=== PATIENT | male | born 1965 | race Caucasian/White ===

== ENCOUNTER 2016-09-18 07:09 | Emergency (ER) | payer OTHER ==
[~2016-09-18] VITALS: Ht 175.3 cm; Wt 90.9 kg
[~2016-09-18 07:09] MED LIST: ZLP10T PO
[2016-09-18 07:10] VITALS: BP 151/94; PULSE 88; RESP 18; O2SAT 97
--- NOTE | 2016-09-18 07:12 | ED.REPORT ---
HPI-General Illness Date of Service Sep 18, 2016 ED Provider: Patient is a 50 year old male with a history of alcoholism and substance abuse who reports to the ER requesting medical clearance for crisis respite. He was recently at crisis but was discharged last week. His last drink was earlier today. Pt took one Tylenol with codeine yesterday and had benzos from the crisis center last week. He denies vomiting or diarrhea. He reports smoking cocaine a few weeks ago and states he has experienced "cocaine psychosis" since. He reports that he is hearing voices that don't tell him to do things but they beat him down. He states that the voices sound very real in his head unless he consumes alcohol which helps to relieve the hallucinations. Pt is supposed to report to a 30-day inpatient treatment center on Monday. He denies suicidal or homicidal ideation. Nursing Notes Stated Complaint: DETOX Chief Complaint: Substance Abuse Nursing Notes Reviewed: Yes Allergies: Coded Allergies: hydrocodone (Verified Allergy, Intermediate, Hives, 09/28/15) varenicline (Verified Allergy, Unknown, PSYCHOSIS, 09/28/15) Scheduled Lorazepam (Ativan) 1 Mg Tablet 1 MG PO DIRECTED 2mg po q6hrs x 24hrs, then 1mg po q6hrs x 24hrs, then 1mg po q8hrs x 24hrs, then 1mg po q12hrs x 24hrs, then 1mg po Quetiapine Fumarate (Seroquel) 25 Mg Tablet 25 MG PO HS Scheduled PRN Zolpidem (Ambien) 10 Mg Tablet 10 MG PO HS PRN PRN For Insomnia General Time Seen by MD: 07:16 Chief Complaint Medical clearance Hx Obtained From: Patient Sudden in Onset?: Yes Onset Occurred: More than a week ago... Symptom Duration: Since onset Severity: Current: No pain currently Severity: Maximum: No pain Similar Sx Previous: Yes Past Medical History Past Medical History Notes: ED visits: 08/31/2015 and 08/03/2015 for EtOH abuse Past Medical History Hep C Polysubstance abuse Tobacco abuse h/o ETOH abuse Past Surgical History Compound fracture of right arm and surgery. Family History non-contributory Smoking History Current Every Day Smoker Social History Alcohol Use: >5 per day Drug Use: Cocaine Other Social History: Good social support, Local resident Ambulatory Status Independent Review of Systems Full Review of Systems GI: Denies: Diarrhea, Nausea, Vomiting Psychiatric: Reports: Hallucinations, auditory (hears voices that are "beating him down"), Denies: Homicidal ideation, Suicidal ideation Complete sys rev & neg: except as marked. Physical Exam Vital Signs Vital Signs Date Time Temp Pulse Resp B/P Pulse Ox O2 Delivery O2 Flow Rate FiO2 09/18/16 07:10 36.6 88 18 151/94 97 Initial VS: Reviewed General/Constitutional: Well-developed, Well-nourished Head / Eyes: Atraumatic, Normocephalic, PERRL ENT: Mucous membranes moist, Conjunctiva normal, No scleral icterus Neck: Supple, Full range of motion Respiratory: Breath sounds normal, Clear to auscultation, No respiratory distress Cardiovascular: Regular rate & rhythm, Heart sounds normal, Intact distal pulses Abdomen / GI: Soft, Non-tender, No guarding, No rebound, No distention Skin: Warm, Dry, No cyanosis Neurologic: Alert, Oriented, Nonfocal Psychiatric: Not suicidal Abnormal Thinking / Perception: Positive: Hallucinations, auditory Hearing voices related to using cocaine, this has happened many times before. The voices are negative but pt is not feeling suicidal or homicidal. Interpretation & Diagnostics Interpretation & Diagnostics: Breathalyzer: 0.084 Urine drug screen positive for benzodiazepines and opiates Lab Results Interpretation Test 09/18/16 07:20 Hold Urine Received (Received) Re-Eval/Medical Decision Med Decision/Clinical Course Great candidate for crisis respite. Incidentally reports auditory hallucinations after using cocaine. Since the patient will be in a monitored setting, Seroquel 25 mg daily at bedtime will be started as well as an Ativan taper. Source of Hx: Old records Consultation : Call Returned at: 07:51 Hand Box Coverer: Agrees with plan Note: Consult with Crisis Center Counseled Regarding: Diagnosis, Lab results, Need for follow-up, When/why to return to ED Discharge & Departure Primary Impression: Alcoholism Disposition: Home Discharge Condition All VS Reviewed: Yes Condition: Stable Additional Instructions: Thank you for seeking care at emergency room. You will be discharged with a prescription for Ativan and Seroquel. You should return to the ED immediately if you develop fevers, vomiting, cough , shortness of breath, chest pain, lightheadedness, weakness or any other concerning signs or symptoms. Thank you for letting us partake in your care today. Referrals: OTHER,PHYSICIAN (PCP) (Family) Scribe Attestation Portion of this note were transcribed by Xiomy Jenkins and Sophia Stewart. I, Dr. Doug Castillo, personally performed the history, physcial exam, and medical decision- making: I reviewed and confirmed the accuracy for the information in the transcribed note. Signed by: Sophia Stewart and aaron Rea, 09/15/16 0831. Walter Mendez DO Sep 18, 2016 07:12 SOPHIA STEWART Sep 18, 2016 07:42 Xiomy Jenkins Sep 18, 2016 08:17
[2016-09-18] MEDS ORDERED: LORA-303 PO (07:33)
[2016-09-18] MEDS ORDERED: QUET25TA PO (07:33)
[2016-09-18] MEDS ORDERED: LORazepam 2 mg Tablet PO ONE (07:55)
== END 2016-09-18 08:14 | disposition home or self-care (01) ==
LOC: SED 07:09
DX: F10.120 Alcohol abuse with intoxication, uncomplicated (principal); F17.200 Nicotine dependence, unspecified, uncomplicated; Z88.5 Allergy status to narcotic agent; Z88.8 Allergy status to other drugs, medicaments and biological substances

== ENCOUNTER 2016-10-01 11:20 | Emergency (ER) | payer OTHER ==
[~2016-10-01] VITALS: Ht 175.3 cm; Wt 90.9 kg
[~2016-10-01 11:20] MED LIST changes: +LORA-303 PO; +QUET25TA PO
[2016-10-01 11:24] VITALS: BP 177/98; PULSE 90; RESP 18; O2SAT 98
[2016-10-01] MEDS ORDERED: LORazepam 0.5 mg Tablet PO ONE (12:20)
--- NOTE | 2016-10-01 12:24 | ED.REPORT ---
[facility]-Medical Clearance Date of Service Oct 01, 2016 ED Provider: Malachi Natarajan PA-C General he is otherwise healthy 50-year-old male presents to be cleared for alcohol rehabilitation. He has a bed arranged at crisis rehabilitation. He states than drinking 1.5 gallons of vodka daily, that his last drink was 2 hours ago. Complains that he has been hearing abusive voices for several months. He relates this to his cocaine use, which he states has ended. Also complains of anxiety. He has no physical complaints. Denies suicidal ideation , homicidal ideation. Nursing Notes Stated Complaint: NEEDS TO GET CLEARED FOR DETOX Chief Complaint: Substance Abuse Nursing Notes Reviewed: Yes Allergies: Coded Allergies: hydrocodone (Verified Allergy, Intermediate, Hives, 09/28/15) varenicline (Verified Allergy, Unknown, PSYCHOSIS, 09/28/15) Scheduled Lorazepam (Ativan) 1 Mg Tablet 1 MG PO DIRECTED 2mg po q6hrs x 24hrs, then 1mg po q6hrs x 24hrs, then 1mg po q8hrs x 24hrs, then 1mg po q12hrs x 24hrs, then 1mg po Quetiapine Fumarate (Seroquel) 25 Mg Tablet 25 MG PO HS Scheduled PRN Zolpidem (Ambien) 10 Mg Tablet 10 MG PO HS PRN PRN For Insomnia General Time Seen by Provider: 11:57 Chief Complaint : Other (alcohol abuse) Reason for visit: Clear for rehab facility Past Medical History Past Medical History Notes: ED visits: 08/31/2015 and 08/03/2015 for EtOH abuse Past Medical History Hep C Polysubstance abuse Tobacco abuse h/o ETOH abuse Past Surgical History Compound fracture of right arm and surgery. Family History non-contributory Smoking History Current Every Day Smoker Social History Alcohol Use: >5 per day Drug Use: Cocaine Other Social History: Good social support, Local resident Ambulatory Status Independent Review of Systems General: Denies fever, chills, malaise. HEENT: Denies congestion, headache, sore throat. Respiratory: Denies dyspnea, cough, shortness of breath, wheezing. Cardiovascular: Denies chest pain, palpitations. Gastrointestinal: Denies vomiting, diarrhea, abdominal pain. Genitourinary: Denies frequency, urgency, dysuria, hematuria. Otherwise as noted in HPI. Physical Exam General: Well appearing, well developed, well nourished, no acute distress. Head: Atraumatic, normocephalic. Eyes: No scleral icterus or injection. No discharge. Vision grossly intact. ENT: Voice clear, hearing grossly intact. Respiratory: Regular rate and rhythm. Breath sounds present, clear to auscultation and equal bilaterally. Cardiovascular: Regular rate and rhythm, without murmur, gallop or rub. No pedal edema. Gastrointestinal: Abdomen flat and non-tender without guarding or rebound. Bowel sounds normoactive. Skin: Warm and dry. Neurological: Grossly nonfocal. Psychological: Alert and oriented. Speech appropriate, linear and logical. Behavior appropriate. Initial Vital Signs Vital Signs (First) Date Time Temp Pulse Resp B/P Pulse Ox O2 Delivery O2 Flow Rate FiO2 10/01/16 11:24 36.1 90 18 177/98 98 Room Air Initial VS: Reviewed Re-Eval/Medical Decision Med Decision/Clinical Course 50-year-old male evaluated for medical clearance to crisis Center. History and physical revealed no medical instability. Admits auditory hallucinations that are abusive, denies command hallucinations. Has a better range at the crisis [facility]. Discharged with Ativan taper and return precautions. Discharge & Departure Impression: Primary Impression: Alcohol abuse Disposition: Home Discharge Condition All VS Reviewed: Yes Condition: Stable Patient Instructions: Abuse of Alcohol (ED) Additional Instructions: Relation in the ED for medical clearance to alcohol rehabilitation. History and physical revealed no medical instability. Urine toxicology was negative, breathalyzer was 0.208. Clinically sober. Cleared for alcohol rehabilitation. We will discharge you with an prescription for Ativan taper. Please present to crisis rehabilitation at the scheduled time. Return to emergency department for any new or worsening symptoms including seizures, chest pain, shortness of breath. Referrals: [facility] Provider for APC: Antoine Carmen MD, Seth PA-C Oct 01, 2016 12:24
== END 2016-10-01 12:58 | disposition home or self-care (01) ==
LOC: SED 11:20
DX: F10.10 Alcohol abuse, uncomplicated (principal); R44.0 Auditory hallucinations; F17.200 Nicotine dependence, unspecified, uncomplicated; Z88.5 Allergy status to narcotic agent

== ENCOUNTER 2016-10-10 21:19 | Emergency (ER) | payer OTHER ==
[~2016-10-10] VITALS: Ht 175.3 cm; Wt 90.9 kg
[2016-10-10 21:45] VITALS: BP 153/88; PULSE 78; RESP 18; O2SAT 97
--- NOTE | 2016-10-10 22:53 | ED.REPORT ---
HPI-General Illness Date of Service Oct 10, 2016 ED Provider: Denis Morgan MD Patient is an alcoholic 50 year old male with hepatitis C who presents to the ED requesting medical clearance for [facility], after last drinking alcohol 1 hour prior to arrival. Patient has a confirmed bed at [facility] at 1am tomorrow morning. He reports typically drinking a case of beer per day. The patient has tried to withdraw from alcohol in the past and he usually only develops shakes and diaphoresis. He denies a history of alcohol withdrawal seizures. The patient states that he has stage 1 fibrosis of his liver, due to hepatitis C. Patient is on a list to receive treatment for his hepatitis C, but needs to have a clean drug screen prior. The patient reports having auditory hallucinations due to prior cocaine use, which is part of the reason why he uses alcohol. The patient states that he is unable to sleep at night otherwise, but sometimes receives relief with Ambien. He states that Seroquel has not improved his symptoms in the past. Patient denies any withdrawal symptoms at this time. Nursing Notes Stated Complaint: DETOX Chief Complaint: Substance Abuse Nursing Notes Reviewed: Yes Allergies: Coded Allergies: No Known Allergies (Unverified , 10/10/16) Scheduled Lorazepam (Ativan) 1 Mg Tablet 1 MG PO DIRECTED 2mg po q6hrs x 24hrs, then 1mg po q6hrs x 24hrs, then 1mg po q8hrs x 24hrs, then 1mg po q12hrs x 24hrs, then 1mg po Quetiapine Fumarate (Seroquel) 25 Mg Tablet 25 MG PO HS Risperidone (Risperdal) 1 Mg Tablet 1 MG PO HS Scheduled PRN Lorazepam (Lorazepam) 2 Mg Tablet 2 MG PO TID PRN PRN For Alcohol Cessation Zolpidem (Ambien) 10 Mg Tablet 10 MG PO HS PRN PRN For Insomnia General Time Seen by MD: 22:49 Chief Complaint Other (alcohol withdrawal) Hx Obtained From: Patient Arrived By: Walk-in Sudden in Onset?: No Onset Occurred: 1 - 4 hours ago Severity: Current: No pain currently Severity: Maximum: No pain Recent Healthcare: No recent doctor visit, No recent hospitalization Similar Sx Previous: Yes Past Medical History Past Medical History Notes: ED visits: 08/31/2015 and 08/03/2015 for EtOH abuse Past Medical History Hep C with Stage 1 fibrosis of liver Polysubstance abuse Tobacco abuse h/o ETOH abuse Past Surgical History Compound fracture of right arm and surgery. Family History non-contributory Smoking History Current Every Day Smoker Social History Alcohol Use: >5 per day Drug Use: Cocaine Other Social History: Good social support, Local resident Ambulatory Status Independent Review of Systems Full Review of Systems Constitutional: Denies: Chills, Fever Neurologic: Denies: Seizure, Shaking Complete sys rev & neg: except as marked. Physical Exam Vital Signs Vital Signs Date Time Temp Pulse Resp B/P Pulse Ox O2 Delivery O2 Flow Rate FiO2 10/10/16 21:45 36.6 78 18 153/88 97 Room Air Initial VS: Reviewed Head / Eyes: Atraumatic, Normocephalic, PERRL ENT: Conjunctiva normal, No scleral icterus Neck: Supple, Full range of motion Abdomen / GI: Soft, Non-tender, No distention Extremities: Vascular intact, Neuro intact Skin: Warm, Dry, No cyanosis Neurologic: Alert, Oriented, Nonfocal Psychiatric: Mood/affect normal, Behavior normal, Normal thought content General/Constitutional: Awake, Alert, No acute distress Behavior: Negative: Appears intoxicated Respiratory / Chest: Breath sounds NL, Breath sounds = bilat, No respiratory distress, No rales, No rhonchi, No wheezing Cardiovascular: Heart rate NL, Regular rhythm, Heart sounds NL Interpretation & Diagnostics Interpretation & Diagnostics: Breathalyzer at intake: 0.117 Lab Results Interpretation Test 10/10/16 22:25 Hold Urine Received (Received) Re-Eval/Medical Decision Med Decision/Clinical Course 48-year-old with hepatitis C and chronic alcoholism presents for detox clearance. He has never had seizures with prior detox efforts. He is stable for detox and outpatient setting. Discharged via cab to crisis with Ativan for withdrawal, and additional Ativan for more prolonged withdrawal course. Suggested she discontinue the Ambien substitute Risperdal, as he continues to have auditory hallucinations without visual hallucinations. No apparent paranoia delusions or other hallucinations. He is transported in stable condition. Source of Hx: Old records Time of Eval: 22:59 Patient Status: Condition improved Re-Evaluation/Progress Note: Patient understands and agrees with the plan to be discharged to [facility]. Discharge instructions and follow-up discussed. All questions were addressed. Return to the ED warnings given. Consultation : Call Returned at: 22:18 Note: Spoke with [facility], who confirmed that they have a bed for the patient at 0100. Counseled Regarding: Diagnosis, Need for follow-up, When/why to return to ED Discharge & Departure Primary Impression: Alcoholism Additional Impressions: Alcohol withdrawal Complication of substance-induced condition: uncomplicated Qualified Code: F10.230 - Alcohol dependence with withdrawal, uncomplicated Auditory hallucinations Disposition: Home Discharge Condition All VS Reviewed: Yes Condition: Stable Patient Instructions: Alcohol Withdrawal (ED) Additional Instructions: Take meds as directed by staff. Risperdal nightly for sleep and for your auditory hallucinations, instead of Seroquel (quetiapine). Stop the Ambien if at all possible. Good luck in your recovery. It is critical for your liver that you quit drinking absolutely. Ceciliaibe Attestation Portions of this note were transcribed by Wanda English. I, Dr. Morgan personally performed the history, physical exam and medical decision-making; I reviewed and confirmed the accuracy of the information in the transcribed note. Signed by: Latosha Germain, 10/11/2016 0038 Denis Morgan MD Oct 10, 2016 22:53 Wanda English Oct 10, 2016 23:00
[2016-10-10] MEDS ORDERED: _LORazepam 2 MG Tablet PO SCH (23:00)
[2016-10-10] MEDS ORDERED: risperiDONE 1 mg Tablet PO ONE (23:00)
[2016-10-10] MEDS ORDERED: LORA2TAB PO (23:04)
[2016-10-10] MEDS ORDERED: RISP1TAB90 PO (23:04)
[2016-10-10] MEDS ORDERED: LORazepam 2 mg Tablet PO ONE (23:10)
== END 2016-10-11 01:02 | disposition home or self-care (01) ==
LOC: SED 21:19
DX: F10.230 Alcohol dependence with withdrawal, uncomplicated (principal); R44.0 Auditory hallucinations; F17.200 Nicotine dependence, unspecified, uncomplicated; B19.20 Unspecified viral hepatitis C without hepatic coma; K70.2 Alcoholic fibrosis and sclerosis of liver

== ENCOUNTER 2016-10-24 23:10 | Emergency (ER) | payer OTHER ==
[~2016-10-24] VITALS: Ht 175.3 cm; Wt 95.5 kg
[~2016-10-24 23:10] MED LIST changes: +LORA2TAB PO; +RISP1TAB90 PO
[2016-10-24 23:16] VITALS: BP 144/91; PULSE 93; RESP 16; O2SAT 97
--- NOTE | 2016-10-25 00:13 | ED.REPORT ---
HPI-General Illness Date of Service Oct 25, 2016 ED Provider: Eddie Phani Patient is a 50 year old male who presents to the ED for medical clearance for [facility]. He has a bed at their facility at 0100 on 10/25/16. He has a history of alcohol abuse with his last intake being 1.5 hours ago. He has no complaints at this time Nursing Notes Chief Complaint: Substance Abuse Nursing Notes Reviewed: Yes Allergies: Coded Allergies: No Known Allergies (Unverified , 10/10/16) Scheduled Lorazepam (Ativan) 1 Mg Tablet 1 MG PO DIRECTED 2mg po q6hrs x 24hrs, then 1mg po q6hrs x 24hrs, then 1mg po q8hrs x 24hrs, then 1mg po q12hrs x 24hrs, then 1mg po Quetiapine Fumarate (Seroquel) 25 Mg Tablet 25 MG PO HS Risperidone (Risperdal) 1 Mg Tablet 1 MG PO HS Risperidone (Risperdal) 3 Mg Tablet 3 MG PO HS Scheduled PRN Lorazepam (Lorazepam) 2 Mg Tablet 2 MG PO TID PRN PRN For Alcohol Cessation Zolpidem (Ambien) 10 Mg Tablet 10 MG PO HS PRN PRN For Insomnia General Time Seen by MD: 00:12 Chief Complaint Medical clearance Hx Obtained From: Patient Arrived By: Walk-in Past Medical History Past Medical History Notes: ED visits: 08/31/2015 and 08/03/2015 for EtOH abuse Past Medical History Hep C with Stage 1 fibrosis of liver Polysubstance abuse Tobacco abuse h/o ETOH abuse Past Surgical History Compound fracture of right arm and surgery. Family History non-contributory Smoking History Current Every Day Smoker (nicotine via vapor pen) Social History Hx of alcohol abuse (1.5 fifths of alcohol a day). Alcohol Use: >5 per day Drug Use: Cocaine Other Social History: Good social support, Local resident Ambulatory Status Independent Review of Systems Full Review of Systems Constitutional: Denies: Chills, Fever Respiratory: Denies: Shortness of breath Cardiovascular: Denies: Chest pain GI: Denies: Abdominal pain Neurologic: Denies: Slurred speech Complete sys rev & neg: except as marked. Physical Exam Vital Signs Vital Signs Date Time Temp Pulse Resp B/P Pulse Ox O2 Delivery O2 Flow Rate FiO2 2/14/17 02:02 18 10/24/16 23:16 36.6 93 16 144/91 97 Room Air Initial VS: Reviewed Head / Eyes: Atraumatic, Normocephalic Neck: Full range of motion Respiratory: No respiratory distress Cardiovascular: Regular rate & rhythm, Heart sounds normal Abdomen / GI: Soft, Non-tender Skin: Warm, Dry Neurologic: Alert, Oriented, Nonfocal Psychiatric: Mood/affect normal, Behavior normal, Normal thought content General/Constitutional: Awake, Alert, Well developed Appearance / Presentation: Positive: Intoxicated Smell of alcohol apparent. Interpretation & Diagnostics Lab Results Interpretation Result Diagram: 10/25/162 10/25/16 005 Test 10/25/16 00:40 10/25/16 00:52 Urine Color Yellow (YELLOW) Urine Appearance Clear (CLEAR,HAZY) Urine pH 5.5 (5.0-8.0) Urine Specific Rawlings 1.030 (1.003-1.035) Urine Protein Negativemg/dL (NEG,TRACE) Urine Glucose (UA) Negativemg/dL (NEGATIVE) Urine Ketones Negativemg/dL (NEGATIVE) Urine Occult Blood Small (NEGATIVE) Urine Nitrite Negative (NEGATIVE) Urine Bilirubin Negative (NEGATIVE) Urine Urobilinogen Normalmg/dL (NORMAL) Urine Leukocyte Esterase Negative (NEGATIVE) Urine RBC 0-2/hpf (0-2) Urine WBC 0-5/hpf (0-5) Urine Epithelial Cells Occasional/hpf (NONE-MOD) Urine Crystals None seen (NONE SEEN) Urine Bacteria None/hpf (NONE-FEW) Urine Hyaline Casts None/lpf (NONE) Urine Granular Casts None seen (NONE SEEN) Urine Waxy Casts None seen (NONE SEEN) Urine Red Blood Cell Casts None seen (NONE SEEN) Urine White Blood Cell Casts None seen (NONE SEEN) Urine Mucus Present (None Seen) Urine Trichomonas None seen (NONE SEEN) Urine Yeast None (NONE SEEN) Urine Culture Reflexed Not indicated White Blood Count 7.8th/mm3 (3.8-10.1) Red Blood Count 5.20mil/mm3 (4.40-5.80) Hemoglobin 16.8g/dL (13.8-17.2) Hematocrit 46.9% (41.0-50.0) Mean Corpuscular Volume 90.2fL (81-100) Mean Corpuscular Hemoglobin 32.3pg (27.0-35.0) Mean Corpuscular Hemoglobin Concent 35.8% (32.0-37.0) Red Cell Distribution Width 14.1% (12.3-15.4) Platelet Count 397bil/L (150-400) Neutrophils (%) (Auto) 54.9% (40-74) Lymphocytes (%) (Auto) 31.6% (14-46) Monocytes (%) (Auto) 9.9% (4-12) Eosinophils (%) (Auto) 2.6% (0-5) Basophils (%) (Auto) 0.6% (0-3) Prothrombin Time 11.0sec (8.1-12.5) Prothromb Time International Ratio 1.03ratio Sodium Level 139mEq/L (134-144) Potassium Level 4.8mEq/L (3.5-5.2) Chloride Level 97mEq/L (97-108) Carbon Dioxide Level 24mmol/L (18-29) Blood Urea Nitrogen 11mg/dL (6-24) Creatinine 1.15mg/dL (0.76-1.27) Estimat Glomerular Filtration Rate 71mL/min (>59) Glucose Level 152mg/dL (60-99) Calcium Level 9.3mg/dL (8.5-10.1) Magnesium Level 2.1mg/dL (1.6-2.6) Total Bilirubin 0.3mg/dL (0.0-1.2) Aspartate Amino Transf (AST/SGOT) 60U/L (0-50) Alanine Aminotransferase (ALT/SGPT) 67U/L (0-44) Alkaline Phosphatase 97U/L (25-150) Total Protein 8.1g/dL (6.4-8.4) Albumin 4.1g/dL (3.4-5.0) Lipase 65U/L (13-60) Re-Eval/Medical Decision Med Decision/Clinical Course 50-year-old with primarily alcohol abuse and a past history of polysubstance abuse presents now for clearance. He is mildly intoxicated but quite functional. I will call level is 0.143. His tox screen is negative. His exam is negative. He is in no distress. Cleared for outpatient detox treatment with lorazepam. Will continue the prescribed Risperdal at at bedtime for control of his auditory hallucinations. Time of Eval: 01:12 Re-Evaluation/Progress Note: Discussed plan for discharge to Crisis. Patient understands and agrees with plan. All questions addressed at this time. Counseled Regarding: Diagnosis, Lab results, When/why to return to ED Discharge & Departure Shift Change Sign-Out Response to Therapy: Improved Primary Impression: Alcohol intoxication Additional Impressions: Alcoholism with alcohol dependence Auditory hallucinations Disposition: Home (Crisis ) Discharge Condition All VS Reviewed: Yes Condition: Stable Patient Instructions: Alcohol Withdrawal (ED) Additional Instructions: Follow-up and rehabilitation as planned. Take meds as directed by staff. Return for any immediate issues. Continue Risperdal at 3 mg nightly at bedtime. Lorazepam as directed by crisis staff. Referrals: OTHER,PHYSICIAN (PCP) (Family) Scribe Attestation Portions of this note were transcribed by Mellisa Anderson. I, Dr. Morgan personally performed the history, physical exam and medical decision-making; I reviewed and confirmed the accuracy of the information in the transcribed note. Signed by: Mellisa Anderson 10/25/16, 0113 Denis Morgan MD Oct 25, 2016 00:13 MELLISA ANDERSON Oct 25, 2016 00:54
[2016-10-25 01:03] LABS: BASOPHILS % (AUTO) 0.6 % (0-3); EOSINOPHILS % (AUTO) 2.6 % (0-5); MONOCYTES % (AUTO) 9.9 % (4-12); Mean Corpuscular Hemoglobin 32.3 pg (27.0-35.0); Mean Corpuscular Volume 90.2 fL (81-100); NEUTROPHILS % (AUTO) 54.9 % (40-74); Platelet Count 397 bil/L (150-400)
[2016-10-25] MEDS ORDERED: RISP3TAB19 PO (01:09)
[2016-10-25] MEDS ORDERED: _LORazepam 2 MG Tablet PO SCH (01:10)
[2016-10-25 01:25] LABS: INR 1.03 ratio
[2016-10-25 01:32] LABS: APPEARANCE,URINE CLEAR (CLEAR,HAZY); COLOR,URINE YELLOW (YELLOW); OCCULT BLOOD,URINE SMALL (NEGATIVE); PH,URINE 5.5 (5.0-8.0); UROBILINOGEN,URINE NORMAL (NORMAL)
[2016-10-25 01:51] LABS: Magnesium 2.1 mg/dL (1.6-2.6)
[2016-10-25 02:02] VITALS: RESP 18
== END 2016-10-25 02:03 | disposition home or self-care (01) ==
LOC: SED 23:10
DX: F10.229 Alcohol dependence with intoxication, unspecified (principal); R44.0 Auditory hallucinations; F17.200 Nicotine dependence, unspecified, uncomplicated

== ENCOUNTER 2016-12-18 17:46 | Emergency (ER) | payer OTHER ==
[~2016-12-18] VITALS: Ht 175.3 cm; Wt 100.0 kg
[~2016-12-18 17:46] MED LIST changes: +RISP3TAB19 PO
[2016-12-18 17:56] VITALS: BP 171/92; PULSE 103; RESP 17; O2SAT 97
--- NOTE | 2016-12-18 19:48 | ED.REPORT ---
HPI-Overdose/Alcohol Toxicity Date of Service Dec 18, 2016 ED Provider: Brit Moe History of Present Illness: need to go to crisis respite. going for alcohol. primary care is gustafson in [facility]. last drink 2 hours ago. Nursing Notes Stated Complaint: CLEARANCE FOR CRISIS CENTER Chief Complaint: Substance Abuse Nursing Notes Reviewed: Yes Allergies: Coded Allergies: No Known Allergies (Unverified , 10/10/16) Scheduled Lorazepam (Ativan) 1 Mg Tablet 1 MG PO DIRECTED 2mg po q6hrs x 24hrs, then 1mg po q6hrs x 24hrs, then 1mg po q8hrs x 24hrs, then 1mg po q12hrs x 24hrs, then 1mg po Quetiapine Fumarate (Seroquel) 25 Mg Tablet 25 MG PO HS Risperidone (Risperdal) 1 Mg Tablet 1 MG PO HS Risperidone (Risperdal) 3 Mg Tablet 3 MG PO HS Scheduled PRN Lorazepam (Lorazepam) 2 Mg Tablet 2 MG PO TID PRN PRN For Alcohol Cessation Zolpidem (Ambien) 10 Mg Tablet 10 MG PO HS PRN PRN For Insomnia General Time Seen by Provider: 19:43 Chief Complaint Intoxicated, alcohol Hx Obtained From: Patient Severity: Current: No pain currently Risk-Overdose/Alcohol Tox )( Suicide Risk Stratification : Alcohol use: Substance abuseNo: Access to firearms, Close associate suicide, Family Hx of Suicide, Previous attempt, Prior psych admission RF Statements: Risk factors reviewed Past Medical History Past Medical History Notes: ED visits: 08/31/2015 and 08/03/2015 for EtOH abuse Past Medical History Hep C with Stage 1 fibrosis of liver Polysubstance abuse Tobacco abuse h/o ETOH abuse Past Surgical History Compound fracture of right arm and surgery. Family History non-contributory Smoking History Current Every Day Smoker Social History Hx of alcohol abuse (1.5 fifths of alcohol a day). Alcohol Use: >5 per day Drug Use: Cocaine Other Social History: Good social support, Local resident Occupation lives by self homeless 12/18/2016 Ambulatory Status Independent Review of Systems Basic Review of Systems : No dysuria, No frequency Allergy / Immune: No allergy Physical Exam Initial Vital Signs Vital Signs (First) Date Time Temp Pulse Resp B/P Pulse Ox O2 Delivery O2 Flow Rate FiO2 12/18/16 17:56 36.7 103 17 171/92 97 Room Air Initial VS: Reviewed, Vital signs abnormal Head / Eyes: Atraumatic, Normocephalic, PERRL ENT: Mucous membranes moist, Conjunctiva normal, No scleral icterus Neck: Supple, Non-tender, Full range of motion Back: No CVA tenderness Lymphatic: No lymphadenopathy Extremities: Vascular intact, Neuro intact, No swelling, No tenderness Skin: Warm, Dry, No cyanosis General/Constitutional: Awake, Alert, No acute distress, Well appearing, Well developed, Well hydrated Respiratory / Chest: Atraumatic, Breath sounds NL, Breath sounds = bilat, No respiratory distress Cardiovascular: Heart rate NL, Regular rhythm, Heart sounds NL, No gallop Abdomen: Atraumatic, Soft, Non-tender Neurologic: Oriented X3, Speech NL, No motor deficits, No sensory deficits Psychiatric: Affect NL, Mood NL Interpretation & Diagnostics Lab Results Interpretation Test 12/18/16 18:15 Hold Urine Received (Received) Re-Eval/Medical Decision Med Decision/Clinical Course 51 year old male here ofr clearance to go to crisis, has a bed time at 8 pm. Patient is medically cleared to go to detox, no sign of SI or bipolar disorder Discharge & Departure Impression: Primary Impression: Alcohol abuse Additional Impression: Medical clearance for psychiatric admission Patient Instructions: Abuse of Alcohol (ED) Additional Instructions: You are cleared to go to Crisis. The cab has been called for you. Good luck at Crisis. Please follow with primary care as needed. You are being provided a pre pack of ativan. Referrals: OTHER,PHYSICIAN (PCP) (Family) EDSupervising Provider for APC: Antoine Carmen MD, Sue ARNP Dec 18, 2016 19:48
[2016-12-18] MEDS ORDERED: _LORazepam 2 MG Tablet PO SCH (19:50)
== END 2016-12-18 20:10 | disposition home or self-care (01) ==
LOC: SED 17:46
DX: F10.10 Alcohol abuse, uncomplicated (principal); F17.200 Nicotine dependence, unspecified, uncomplicated; Z02.89 Encounter for other administrative examinations